=== PATIENT | male | born 1945 | race Asian ===

== ENCOUNTER 2023-10-28 07:02 | Inpatient (IN) | payer OTHER, MEDICARE ==
[2023-10-28] VITALS (9 sets, daily range): BP systolic 96–129; PULSE 104–111; RESP 17–18; TEMP 98–99.3; O2SAT 95–97
[~2023-10-28] VITALS: Ht 162.6 cm; Wt 59.4 kg
[2023-10-28 07:34] LABS: BASOPHILS % (AUTO) 0.2 % (0.0-2.0); EOSINOPHILS % (AUTO) 0.2 % (0.0-4.0); HEMATOCRIT 43.1 % (36-54); HEMOGLOBIN 14.4 g/dL (14.0-18.0); LYMPHOCYTES # (AUTO) 0.4 K/uL (1.0-5.5); LYMPHOCYTES % (AUTO) 5.5 % (20.5-51.5); MEAN CORPUSCULAR HEMOGLOBIN 29 pg (27-31); MEAN CORPUSCULAR HGB CONC 33 % (32-36); MEAN CORPUSCULAR VOLUME 86 fL (79.0-98.0); MONOCYTES % (AUTO) 13.1 % (1.7-9.3); PLATELET COUNT (AUTO) 197 K/uL (130-430); RED CELL DISTRIBUTION WIDTH 14.2 % (9.0-15.0); WHITE BLOOD COUNT (AUTO) 7.4 K/uL (4.8-10.8)
[2023-10-28] MEDS: NACL 0.9% 1,000 ML IV ONE (07:52)
[2023-10-28 07:54] LABS: BILIRUBIN,URINE NEGATIVE (NEGATIVE); BLOOD, URINE 2+ (NEGATIVE); CLARITY/URINE CLEAR (CLEAR); COLOR,URINE YELLOW (YELLOW); GLUCOSE,URINE NEGATIVE (NEGATIVE); KETONES,URINE NEGATIVE (NEGATIVE); LEUKOCYTE ESTERASE ,URINE NEGATIVE (NEGATIVE); NITRITE, URINE NEGATIVE (NEGATIVE); PROTEIN URINE NEGATIVE (NEGATIVE); UROBILINOGEN,URINE 0.2 (0.2-1.0)
[2023-10-28] MEDS: ONDANSETRON HCL 4 MG/2 ML VIAL IVP ONE (08:01)
[2023-10-28 08:02] LABS: COVID19 ANTIGEN SOFIA FIA NEGATIVE (NEGATIVE); INFLUENZA TYPE B NEGATIVE (NEGATIVE)
[2023-10-28 08:03] LABS: INR 1.3 (0.80-1.20); PROTHROMBIN TIME 13.3 SECS (9.5-12.5)
[2023-10-28] MEDS: PROMETHAZINE HCL/CODEINE 6.25-10 mg/5 mL UDC PO ONE (08:09)
[2023-10-28 08:11] LABS: ALANINE AMINOTRANSFERASE 29 U/L (12-78); ALBUMIN 4.1 g/dL (3.4-4.8); ANION GAP 9 (5-15); ASPARTATE AMINOTRANSFERASE 27 U/L (10-37); CALCIUM 8.8 mg/dL (8.4-11.0); CARBON DIOXIDE 27 mmol/L (23-29); CHLORIDE 102 mmol/L (98-107); CREATININE 1.29 mg/dL (0.55-1.30); GLUCOSE 140 mg/dL (74-106); POTASSIUM 3.9 mmol/L (3.5-5.1); SODIUM SERUM 138 mmol/L (136-145); TOTAL BILIRUBIN 0.5 mg/dL (0.0-1.0); TOTAL PROTEIN, SERUM 7.6 g/dL (6.4-8.3); UREA NITROGEN, BLOOD 16 mg/dL (8-21)
[2023-10-28 08:15] LABS: INFLUENZA TYPE A Positive (NEGATIVE)
[2023-10-28] MEDS: guaiFENesin 200 MG/CODEINE 20 MG/ 10 ML UDC PO ONE (08:18)
[2023-10-28 08:31] LABS: AMYLASE 112 U/L (0-100); BILIRUBIN,DIRECT 0.2 mg/dL (0.0-0.3); LIPASE 46 U/L (16-77)
[2023-10-28 08:33] LABS: BACTERIA,URINE None Seen /HPF (None Seen); WBC,URINE NONE SEEN /HPF (0-3)
[2023-10-28] MEDS: IPRATROPIUM/ALBUTEROL SULFATE 3 ML AMPUL.NEB (DUONEB) INH ONE ×2 (09:07→11:55)
[2023-10-28] MEDS ORDERED: VITD2000 PO (09:53)
[2023-10-28] MEDS ORDERED: LEVO100C4 PO (09:53)
[2023-10-28] MEDS ORDERED: LOSA-413 PO (09:53)
[2023-10-28] MEDS ORDERED: AMLO10TA88 PO (09:53)
[2023-10-28] MEDS ORDERED: FAMO20TA8 PO (09:53)
[2023-10-28] MEDS ORDERED: LIP40 PO (09:53)
[2023-10-28] MEDS ORDERED: LORA10CA PO (09:53)
[2023-10-28] MEDS ORDERED: METO-306 PO (09:53)
[2023-10-28] MEDS: OSELTAMIVIR PHOSPHATE 75 MG CAPSULE PO ONE (09:59)
[2023-10-28] MEDS ORDERED: NALOXONE HCL 0.4 MG/ML AMP (NARCAN) IVP PRN ×2 (11:00)
[2023-10-28] MEDS ORDERED: ONDANSETRON HCL 4 MG/2 ML VIAL IVP PRN (11:00)
[2023-10-28] MEDS ORDERED: HYDROcodone/ACETAMIN 10-325 MG TAB PO PRN (11:00)
[2023-10-28] MEDS ORDERED: LORazepam 2 MG/ML VIAL IVP PRN (11:00)
[2023-10-28] MEDS ORDERED: HYDROcodone/ACETAMIN 5-325 MG TAB (NORCO/ VICODIN) PO PRN (11:00)
[2023-10-28] MEDS ORDERED: ALBUTEROL SULFATE 0.083% 2.5 MG/3 ML VIAL.NEB INH SCH (11:00)
[2023-10-28] MEDS ORDERED: IPRATROPIUM BROM 0.5 MG/2.5 ML VIAL.NEB (ATROVENT) INH SCH (11:00)
[2023-10-28] MEDS: CHOLECALCIFEROL (VITAMIN D3) 2,000 UNIT TABLET PO ONE ×2 (12:15→12:43)
[2023-10-28] MEDS: FAMOTIDINE 20 MG TABLET PO ONE (12:43)
[2023-10-28] MEDS: LORATADINE 10 MG TABLET PO ONE (12:43)
[2023-10-28] MEDS: amLODIPine BESYLATE 10 MG TABLET PO ONE (12:45)
[2023-10-28] MEDS: METOPROLOL SUCCINATE 50 MG TAB.SR.24H (TOPROL XL) PO ONE (12:46)
[2023-10-28] MEDS: NORMAL SALINE 5 ML DISP.SYRIN IVF SCH (14:00)
[2023-10-28] MEDS ORDERED: PROMETHAZINE HCL/CODEINE 6.25-10 mg/5 mL UDC PO PRN (15:15)
[2023-10-28] MEDS ORDERED: BENZOCAINE/MENTHOL 1 EACH LOZENGE MM PRN (15:15)
[2023-10-28] MEDS: IPRATROPIUM/ALBUTEROL SULFATE 3 ML AMPUL.NEB (DUONEB) INH SCH (15:45)
[2023-10-28] MEDS: guaiFENesin 200 MG/CODEINE 20 MG/ 10 ML UDC PO PRN (16:24)
[2023-10-28] MEDS: 0.45% NACL 1,000 ML IV SCH (16:25)
[2023-10-28] MEDS: ACETAMINOPHEN 325 MG TABLET PO PRN (16:50)
[2023-10-28] MEDS: OSELTAMIVIR PHOSPHATE 75 MG CAPSULE PO SCH (20:58)
[2023-10-28] MEDS: amLODIPine BESYLATE 10 MG TABLET PO SCH (21:00)
[2023-10-28] MEDS: LOSARTAN POTASSIUM 50 MG TABLET (COZAAR) PO SCH (21:00)
[2023-10-28] MEDS: ATORVASTATIN 20 MG TABLET PO SCH (21:00)
[2023-10-28] MEDS: METOPROLOL SUCCINATE 50 MG TAB.SR.24H (TOPROL XL) PO SCH (21:00)
[2023-10-29] VITALS (7 sets, daily range): BP systolic 92–107; PULSE 90–113; RESP 18; TEMP 98–99.4; O2SAT 94–98
[2023-10-29 06:12] LABS: ANION GAP 8 (5-15); CALCIUM 7.5 mg/dL (8.4-11.0); CARBON DIOXIDE 26 mmol/L (23-29); CHLORIDE 105 mmol/L (98-107); CREATININE 1.24 mg/dL (0.55-1.30); GLUCOSE 115 mg/dL (74-106); POTASSIUM 3.2 mmol/L (3.5-5.1); SODIUM SERUM 139 mmol/L (136-145); UREA NITROGEN, BLOOD 14 mg/dL (8-21)
[2023-10-29 06:17] LABS: BASOPHILS % (AUTO) 0.5 % (0.0-2.0); EOSINOPHILS % (AUTO) 0.2 % (0.0-4.0); HEMATOCRIT 35.9 % (36-54); HEMOGLOBIN 12.1 g/dL (14.0-18.0); LYMPHOCYTES # (AUTO) 0.9 K/uL (1.0-5.5); LYMPHOCYTES % (AUTO) 18.1 % (20.5-51.5); MEAN CORPUSCULAR HEMOGLOBIN 29 pg (27-31); MEAN CORPUSCULAR HGB CONC 34 % (32-36); MEAN CORPUSCULAR VOLUME 86 fL (79.0-98.0); MONOCYTES # (AUTO) 1.1 K/uL (0.0-1.0); MONOCYTES % (AUTO) 22.3 % (1.7-9.3); NEUTROPHILS % (AUTO) 58.9 % (40.0-70.0); PLATELET COUNT (AUTO) 157 K/uL (130-430); RED BLOOD CELL COUNT(AUTO) 4.19 MIL/uL (4.2-6.2); WHITE BLOOD COUNT (AUTO) 5.1 K/uL (4.8-10.8)
[2023-10-29] MEDS ORDERED: LEVOTHYROXINE SODIUM 0.1 MG TABLET PO SCH (07:00)
[2023-10-29] MEDS: CHOLECALCIFEROL (VITAMIN D3) 2,000 UNIT TABLET PO SCH (08:38)
[2023-10-29] MEDS: LORATADINE 10 MG TABLET PO SCH (08:38)
[2023-10-29] MEDS: FAMOTIDINE 20 MG TABLET PO SCH (08:39)
[2023-10-29] MEDS: LEVOTHYROXINE SODIUM 0.1 MG TABLET PO ONE (10:18)
[2023-10-29] MEDS: POTASSIUM CHLORIDE 20 MEQ TABLET.ER PO ONE (10:18)
[2023-10-29] MEDS ORDERED: ROBAC PO (10:52)
[2023-10-29] MEDS ORDERED: OSEL75CA PO (10:52)
[2023-10-29] MEDS ORDERED: ALBMDI INH (10:52)
[2023-10-29] MEDS ORDERED: BENZ1LOZ60 MM (10:52)
[2023-10-29] MEDS ORDERED: LEVOFLOXACIN 250 MG/D5W 50 ML IV SCH (17:00)
[2023-10-30] MEDS ORDERED: LEVOTHYROXINE SODIUM 0.1 MG TABLET PO SCH (07:00)
== END 2023-10-29 12:00 | disposition home or self-care (01) | DRG 193 ==
LOC: SED 07:02 → STU 09:47
PROVIDERS: ADMIT Preventive Medicine Preventive Medicine/Occupational Environmental Medicine; ATTEND Preventive Medicine Preventive Medicine/Occupational Environmental Medicine
DX: J10.01 Influenza due to other identified influenza virus with the same other identified influenza virus pneumonia (principal); J96.01 Acute respiratory failure with hypoxia; Z79.899 Other long term (current) drug therapy; I10 Essential (primary) hypertension; I25.10 Atherosclerotic heart disease of native coronary artery without angina pectoris; Z20.822 Contact with and (suspected) exposure to COVID-19; R73.9 Hyperglycemia, unspecified
CPT/HCPCS: 36415; 71045; 71250-TC; 80048; 80076; 81000; 81001; 81015; 82150; 83605; 83690; 83880; 84484; 85025; 85379; 85610; 85730; 87040; 93005; 94070; 94640; 94760; 96374; 99285; G0378; G9035; J1956; J2405